=== PATIENT | male | born 1950 | race Caucasian/White ===

== ENCOUNTER 2016-11-29 11:41 | Emergency (ER) | payer BC ==
[2016-11-29] MEDS ORDERED: LACTATED RINGERS 1,000 ML ONE (12:36)
[2016-11-29] MEDS ORDERED: DILTIAZEM HCL 5 MG/ML 5ML VIAL IV ONE (12:37)
[2016-11-29 12:59] LABS: ABSOLUTE NEUTROPHIL COUNT 2.3 K/mm3 (1.8-7.7); BASO % 0.6 % (0.2-1.0); EOS # 0.2 (0.0-0.5); EOS % 4.8 % (0.9-2.9); HEMATOCRIT 37.7 % (32.0-52.0); HEMOGLOBIN 12.7 gm/l (14.0-18.0); IMM NEUT% 0.3 % (0-1); LYMPH # 0.7 (1.0-4.8); LYMPH % 20.7 % (15-45); MEAN CELL VOLUME 104.4 fl (80.0-94.0); MEAN CORPUSCULAR HEMOGLOBIN 35.2 pg (27.0-31.0); MEAN CORPUSCULAR HGB CONC 33.7 g/dl (33.0-37.0); MEAN PLATELET VOLUME 10.9 fl (7.4-10.4); MONO # 0.3 (0.0-0.8); MONO % 8.5 % (4-12); NEUT % 65.1 % (43-75); PLATELET COUNT 124 K/mm3 (130-400); RED CELL DISTRIBUTION WIDTH 14.1 % (11.5-14.5)
[2016-11-29 13:16] LABS: ALB/GLOB RATIO 1.6 (>1.0); ALBUMIN 4.5 gm/dL (3.5-5.7); CALCIUM 9.4 mg/dL (8.6-10.3); TROPONIN I < 0.01 ng/ml (0.0-0.06)
[2016-11-29 13:20] LABS: CKMB ISOENZYME 2.9 ng/ml (0.6-6.3)
[2016-11-29] MEDS ORDERED: Heparin Sodium Flush 500 unit/5 ml syringe ONE (14:20)
== END 2016-11-29 14:42 | disposition home or self-care (01) ==
LOC: ED 11:41 → CPS 11:41 → ED 14:42
DX: I48.91 Unspecified atrial fibrillation (principal); R53.81 Other malaise; C19 Malignant neoplasm of rectosigmoid junction; C78.02 Secondary malignant neoplasm of left lung; C78.01 Secondary malignant neoplasm of right lung; K76.9 Liver disease, unspecified; I10 Essential (primary) hypertension; F17.210 Nicotine dependence, cigarettes, uncomplicated